=== PATIENT | female | born 1990 | race Caucasian/White ===

== ENCOUNTER 2020-07-08 21:13 | Inpatient (IN) ==
[2020-07-08] MEDS ORDERED: Naloxone 0.4 MG/ML INJ IVP PRN (23:50)
[2020-07-08] MEDS ORDERED: Ondansetron 4 MG/2 ML VIAL IVP PRN (23:50)
[2020-07-09] MEDS: *HR* Enoxaparin 40 MG/0.4 ML SYRINGE SQ SCH (04:56)
[2020-07-09 05:49] LABS: Basophils % 0.3 %; Hematocrit 42.1 % (35.3-44.9); Hemoglobin 13.2 g/dL (11.5-15.4); Immature Granulocytes % 0.7 % (0-4); Lymphocytes # 0.6 K/mcL (0.6-4.6); Lymphocytes % 8.8 %; Mean Corpuscular HGB Conc 31.4 g/dL (31.6-35.5); Mean Corpuscular Hemoglobin 28.1 pg (28.0-33.3); Mean Corpuscular Volume 89.8 fL (83.0-100.0); Mean Platelet Volume 9.9 fL (9.4-12.4); Monocytes # 0.7 K/mcL (0.0-1.3); Monocytes % 10.1 %; Neutrophils # 5.5 K/mcL (1.6-8.9); Platelet Count 241 K/mcL (140-400); Red Blood Count 4.69 M/mcL (3.82-4.97); Red Cell Distribution Width 13.2 % (11.5-14.5); Segmented Neutrophils % 80.1 %; White Blood Count 6.8 K/mcL (4.3-11.1)
[2020-07-09 05:58] LABS: INR 1.1; Prothrombin Time 12.1 Seconds (9.4-12.1)
[2020-07-09 06:12] LABS: Alanine Aminotransferase 34 Units/L (7-52); Albumin 3.8 g/dL (3.5-5.7); Albumin/Globulin Ratio 1.4 (1.1-2.2); Alkaline Phosphatase 28 Units/L (34-104); Aspartate Amino Transferase 23 Units/L (13-39); BUN/Creatinine Ratio 16 (6-26); Bilirubin,Total 0.5 mg/dL (0.3-1.0); Blood Urea Nitrogen 13 mg/dL (6-20); Calcium 8.1 mg/dL (8.6-10.3); Carbon Dioxide 21 mEq/L (23-29); Chloride 107 mEq/L (98-107); Globulin 2.7 g/dL (2.4-3.5); Glucose 140 mg/dL (70-105); Lactate Dehydrogenase 391 Units/L (140-271); Magnesium 2.1 mg/dL (1.6-2.6); Osmolality,Calculated 288 (280-300); Potassium 4.4 mEq/L (3.5-5.1); Sodium 138 mEq/L (136-145); Total Protein 6.5 g/dL (6.4-8.9); Troponin I < 0.03 ng/mL (< 0.04); eGFR For African Americans > 60 (> 60); eGFR For Non-African Americans > 60 (> 60)
[2020-07-09] MEDS: Dexamethasone 4 MG/ML VIAL IVP SCH (08:17)
[2020-07-09] MEDS: levoFLOXacin 750 MG TABLET PO SCH (08:24)
[2020-07-09] MEDS ORDERED: Isovue-370 500 ML BOTTLE IVP ONE (10:14)
[2020-07-09 11:35] LABS: C-Reactive Protein 28 mg/L (Less than 10)
[2020-07-09] MEDS ORDERED: Benzonatate 100 MG CAPSULE PO PRN (13:39)
[2020-07-09] MEDS: lamoTRIgine 100 MG TABLET PO SCH (19:52)
[2020-07-09] MEDS: QUEtiapine Fumarate 100 MG, QUEtiapine Fumarate 300 MG PO SCH (19:53)
[2020-07-09] MEDS ORDERED: NON-FORMULARY MEDICATION 1 EACH EACH (Quetiapine Fumarate [Seroquel] 400 MG) PO SCH (21:00)
[2020-07-10] MEDS: *HR* Enoxaparin 40 MG/0.4 ML SYRINGE SQ SCH (05:34)
[2020-07-10 07:36] LABS: BUN/Creatinine Ratio 21 (6-26); Blood Urea Nitrogen 16 mg/dL (6-20); Calcium 8.4 mg/dL (8.6-10.3); Carbon Dioxide 23 mEq/L (23-29); Chloride 107 mEq/L (98-107); Glucose 100 mg/dL (70-105); Magnesium 2.2 mg/dL (1.6-2.6); Osmolality,Calculated 287 (280-300); Phosphorous 3.6 mg/dL (2.7-4.5); Sodium 138 mEq/L (136-145); eGFR For African Americans > 60 (> 60); eGFR For Non-African Americans > 60 (> 60)
[2020-07-10] MEDS: Dexamethasone 4 MG/ML VIAL IVP SCH (09:06)
[2020-07-10] MEDS: levoFLOXacin 750 MG TABLET PO SCH (09:07)
[2020-07-10] MEDS: Furosemide 20 MG/2 ML VIAL IVP SCH ×2 (15:19→21:03)
[2020-07-10] MEDS: lamoTRIgine 100 MG TABLET PO SCH (21:03)
[2020-07-10] MEDS: QUEtiapine Fumarate 100 MG, QUEtiapine Fumarate 300 MG PO SCH (21:03)
[2020-07-11] MEDS: *HR* Enoxaparin 40 MG/0.4 ML SYRINGE SQ SCH (05:12)
[2020-07-11 07:42] VITALS: BP 123/79
[2020-07-11] MEDS: Dexamethasone 4 MG/ML VIAL IVP SCH (08:26)
[2020-07-11] MEDS: levoFLOXacin 750 MG TABLET PO SCH (08:27)
[2020-07-11] MEDS: Furosemide 20 MG/2 ML VIAL IVP SCH (08:27)
== END 2020-07-11 16:15 | disposition home or self-care (01) | DRG 177 ==
LOC: 2NENU → SUATTDRO 23:14
PROVIDERS: ADMIT Family Medicine; ATTEND Internal Medicine